=== PATIENT | male | born 1985 | race Caucasian/White ===

== ENCOUNTER 2018-12-19 11:36 | Emergency (ER) | payer MEDICAID ==
[~2018-12-19] VITALS: Ht 182.9 cm; Wt 89.1 kg
[2018-12-19 11:38] VITALS: BP 128/87; PULSE 87; RESP 18; Ht 182.9 cm; Wt 89.1 kg
[2018-12-19] MEDS ORDERED: KETOROLAC 60 MG INJ IM STA (12:59)
[2018-12-19] MEDS ORDERED: HYDROCODONE/APAP (5/325) TAB PO ONE (13:00)
[2018-12-19] MEDS ORDERED: CYCLOBENZAPRINE 10 MG TAB PO ONE (13:00)
[2018-12-19] MEDS ORDERED: METHYLPREDNISOLONE 125 MG INJ IM ONE (13:00)
--- NOTE | 2018-12-19 13:16 | ERD ---
ER Documentation Chief Complaint Chief Complaint BACK PAIN RAD RIGHT LEG HPI This is a 33-year-old male presents ED with complaints of right low back pain x1 year. Patient denies any fall or injury to account for pain. Patient states that the pain radiates down the right posterior leg. Worsened by prolonged sitting. Admits to seeing a specialist and having an epidural injection but states that that has not helped. Patient denies any fevers, chills, bowel/bladder incontinence, saddle paresthesias, nausea, vomiting, diarrhea, constipation, lack sensation, weakness. No known drug allergies. ROS All systems reviewed and are negative except as per history of present illness. Allergies Allergies: Coded Allergies: No Known Allergy (Unverified , 12/19/18) PMhx/Soc Medical and Surgical Hx: pt denies Medical Hx History of Surgery: Yes (tonsiles) Anesthesia Reaction: No Hx Neurological Disorder: No Hx Respiratory Disorders: No Hx Cardiac Disorders: No Hx Psychiatric Problems: No Hx Miscellaneous Medical Probl: No Hx Alcohol Use: Yes Hx Substance Use: No Hx Tobacco Use: No Smoking Status: Never smoker Physical Exam Vitals Vital Signs Date Temp Pulse Resp B/P (MAP) Pulse Ox O2 O2 Flow FiO2 Time Delivery Rate 12/19/18 98.1 87 18 128/87 99 11:38 (101) Physical Exam Const: No acute distress Head: Atraumatic Eyes: Normal Conjunctiva ENT: Normal External Ears, Nose and Mouth. Neck: Full range of motion. No meningismus. Resp: Clear to auscultation bilaterally Cardio: Regular rate and rhythm, no murmurs Back: No thoracic or lumbar midline tenderness, there is mild tenderness palpation along the paravertebral muscles in the right low back, mild tenderness palpation along the right sciatic nerve, positive straight leg raise on right Ext: No cyanosis, or edema Neur: Awake and alert Psych: Normal Mood and Affect Results 24 hrs Current Medications Medications Dose Sig/Sarahy Start Time Status Last (Trade) Ordered Route PRN Stop Time Admin Dose Reason Admin Ketorolac 60 mg ONCE STAT 12/19/18 DC Tromethamine IM 12:59 (Toradol) 12/19/18 13:03 125 mg ONCE ONCE 12/19/18 DC Methylprednis IM 13:00 olone Sodium 12/19/18 13:03 Succinate (Solu-Medrol) 1 tab ONCE ONCE 12/19/18 DC Acetaminophen PO 13:00 / 12/19/18 13:02 Hydrocodone Bitart (Joppa (5/325)) 10 mg ONCE ONCE 12/19/18 DC Cyclobenzapri PO 13:00 ne HCl 12/19/18 13:02 (Flexeril) Procedures/MDM ER COURSE: The patient was offered medication for pain but declines The patient was stable throughout ED course. I kept the patient and/or family informed of laboratory and diagnostic imaging results throughout the emergency room course. The patient was promptly evaluated and a treatment plan was devised based on H&P and other data. This plan was discussed with the patient who agreed and had no further questions or concerns prior to discharge. MEDICAL DECISION MAKIN-year-old male presents to ED with right low back pain x1 year. Given positive straight leg raise this is likely sciatica. Offered patient medication in the emergency department but he has declined this at this time. Patient was advised to follow-up with system support specialist to discuss further treatment and possibly advanced imaging such as MRI. Offered patient xray but he declines this as well stating that he will follow up with system support specialist. History and physical examination other data not consistent with processing including cauda equina syndrome, cord compression, infiltrative etiology, infectious etiology, epidural abscess, fracture, obstructive pyelonephritis, abdominal aortic aneurysm. Vitals are stable and patient can be managed outpatient with close follow-up. Advised patient to follow up with primary care in the next 48 hours. return to ED with any worsening symptoms DISPOSITION PLAN: We discussed follow up with the patient's primary care doctor within 24 to 48 hours. Patient counseled regarding my diagnostic impression and care plan. Prior to discharge all questions answered. Pt agrees with treatment plan and understands strict return precautions. Precautionary instructions provided including instructions to return to the ER if not improving or for any worsening or changing symptoms or concerns. SPECIALIST FOLLOW UP RECOMMENDED: ortho Patient has been advised to follow up with primary care in 1-2 days. Disclaimer: Inadvertent spelling and grammatical errors are likely due to EHR/dictation software use and do not reflect on the overall quality of patient care. Also, please note that the electronic time recorded on this note does not necessarily reflect the actual time of the patient encounter. Departure Diagnosis: Primary Impression: Back pain Back pain location: low back pain Chronicity: acute Back pain laterality: right Sciatica presence: with sciatica Sciatica laterality: sciatica of right side Qualified Codes: M54.41 - Lumbago with sciatica, right side Condition: Stable Patient Instructions: Back Pain W/ Sciatica Referrals: JOEL JUNE MD,BOWEN AYALA,DAWSON BRADLEY,MARBIN DURHAM,THIEN JULIO,JESSIE YO,FRANK EDWARD,[facility] YOU HAVE RECEIVED A MEDICAL SCREENING EXAM AND THE RESULTS INDICATE THAT YOU DO NOT HAVE A CONDITION THAT REQUIRES URGENT TREATMENT IN THE EMERGENCY DEPARTMENT. FURTHER EVALUATION AND TREATMENT OF YOUR CONDITION CAN WAIT UNTIL YOU ARE SEEN IN YOUR DOCTORS OFFICE WITHIN THE NEXT 1-2 DAYS. IT IS YOUR RESPONSIBILITY TO MAKE AN APPOINTMENT FOR FOLOW-UP CARE. IF YOU HAVE A PRIMARY DOCTOR --you should call your primary doctor and schedule an appointment IF YOU DO NOT HAVE A PRIMARY DOCTOR YOU CAN CALL OUR PHYSICIAN REFERRAL HOTLINE AT IF YOU CAN NOT AFFORD TO SEE A PHYSICIAN YOU CAN CHOSE FROM THE FOLLOWING [facility] [address] [facility] [address] [facility] [address] [facility] [address] [facility] [address] [facility] [facility]. [address] [facility] Urgent Care 7 a.m.- 11 p.m. Every Day of the Week NO APPOINTMENT OR AUTHORIZATION NEEDED [facility] Hours: Mon-Fri 9:00 AM - 5:00 PM Additional Instructions: Patient advised to return to the ED immediately for new or worsening symptoms. Patient advised to follow up with primary care provider in the next 24-48 hours. Patient verbalized understanding and agrees with treatment plan and course of action. If patient has no primary care they may follow up with one of the [facility] clinics listed on the following page or one of the options listed below [facility] + [address] [address] or [facility] [address] [place] [address] or [facility] [address] [place] [address] DAVID OSULLIVAN PA-C Dec 19, 2018 13:16
== END 2018-12-19 13:08 | disposition home or self-care (01) ==
LOC: FTE 11:36
DX: M54.41 Lumbago with sciatica, right side (principal)
CPT/HCPCS: 99282